=== PATIENT | female | born 1985 | race Caucasian/White ===

== ENCOUNTER → 2018-08-01 | Outpatient (CLI) | payer OTHER, SELFPAY ==
[~2018-08-01] MED LIST: HYDACE5 PO; NAPR550 PO; [UNRECOGNIZED DRUG - REMARK]
[2018-08-03 06:07] LABS: HIV SCREEN 4TH GENERATION WRFX Non Reactive (Non Reactive)
== END | disposition home or self-care (01) ==
LOC: LAB SHORT 17:32 → LAB EV 17:32
PROVIDERS: Physician Assistant Surgical
DX: Z20.9 Contact with and (suspected) exposure to unspecified communicable disease (principal)
CPT/HCPCS: 86803; 87389

== ENCOUNTER → 2018-12-04 | Outpatient (CLI) | payer OTHER ==
[2018-12-06 04:06] LABS: HCV ANTIBODY <0.1 (0.0-0.9)
[2018-12-06 08:06] LABS: HIV SCREEN 4TH GENERATION WRFX Non Reactive (Non Reactive)
== END | disposition home or self-care (01) ==
LOC: LAB SHORT 15:37 → LAB EV 15:37
PROVIDERS: Physician Assistant Surgical
DX: Z20.9 Contact with and (suspected) exposure to unspecified communicable disease (principal)
CPT/HCPCS: 84460; 86317; 86803; 87389

== ENCOUNTER 2019-05-24 12:08 | Inpatient (IN) | payer OTHER ==
[~2019-05-24] VITALS: Ht 162.6 cm; Wt 63.0 kg
[~2019-05-24 12:08] MED LIST changes: +ALLEGRA ALLERG180 MG PO; +ASCO500 PO; +ASPIR 8181 M1 PO; +CYCL10 PO; +FAMO20 PO
[2019-05-24 13:18] LABS: BASOPHILS ABSOLUTE AUTO 0.03 K/mm3 (0.00-0.23); BASOPHILS PERCENT AUTO 0 % (0-2); EOSINOPHILS ABSOLUTE AUTO 0.06 K/mm3 (0.00-0.68); EOSINOPHILS PERCENT AUTO 1 % (0-6); Hematocrit 41.7 % (33.0-51.0); IMMATURE GRAN ABSOLUTE AUTO 0.04 K/mm3 (0.00-0.10); IMMATURE GRAN PERCENT AUTO 0 % (0-1); LYMPHOCYTES ABSOLUTE AUTO 1.94 K/mm3 (0.84-5.20); LYMPHOCYTES PERCENT AUTO 17 % (21-46); MONOCYTES ABSOLUTE AUTO 1.08 K/mm3 (0.16-1.47); MONOCYTES PERCENT AUTO 10 % (4-13); Mean Corpuscular HGB 33.5 pg (26.0-34.0); Mean Corpuscular HGB Conc 33.6 g/dL (31.5-36.5); Mean Corpuscular Volume 100 fL (80-100); Mean Platelet Volume 11.5 fL (9.1-12.4); NEUTROPHILS ABSOLUTE AUTO 8.26 K/mm3 (1.96-9.15); NEUTROPHILS PERCENT AUTO 72 % (41-73); Platelet Count 163 K/mm3 (150-400); RDW Coefficient Variation 12.9 % (11.7-14.2); RDW Standard Deviation 47.8 fL (35.1-46.3); Red Blood Cell Count 4.18 M/mm3 (3.80-5.20); White Blood Cell Count 11.41 K/mm3 (4.00-11.30)
--- NOTE | 2019-05-25 10:47 | NUR ---
05/25/19 1047 Sang Champagne CORD BLOOD SENT WITH BRENDON RN. TIME OF 0956. VIABLE BABY GIRL.
[2019-05-26 05:20] LABS: Hematocrit 40.1 % (33.0-51.0); Hemoglobin 13.3 g/dL (11.5-16.0); Mean Corpuscular HGB 32.8 pg (26.0-34.0); Mean Corpuscular HGB Conc 33.2 g/dL (31.5-36.5); Mean Corpuscular Volume 99 fL (80-100); Platelet Count 128 K/mm3 (150-400); RDW Standard Deviation 47.5 fL (35.1-46.3); Red Blood Cell Count 4.05 M/mm3 (3.80-5.20); White Blood Cell Count 10.99 K/mm3 (4.00-11.30)
--- NOTE | 2019-05-26 06:23 | NUR ---
IV IN RIGHT HAND UNABLE TO FLUSH. IV D/C, WNL.
--- NOTE | 2019-05-26 13:27 | NUR ---
ENCOURAGED PT TO AMBULATE IN HALLS 20-30 MIN AFTER TAKING PAIN MEDICATION, PT UNSURE IF SHE CAN STATES IS TO PAINFUL, DISCUSSED THE NEED FOR AMBULATING TO HELP PASSING FLATUS
--- NOTE | 2019-05-26 13:49 | NUR ---
PT LYING IN BED STATES PAIN IS BETTER BUT JUST RETURNED FROM AMBULATING TO BATHROOM AND THAT WAS PAINFUL, RESTING IN BED STATES PAIN IS 2/10 AND TOLEERABLE BUT WHEN AMBULATING ITS MUCH WORST 7-8/10. INSTURCTED TO CALL IF SHE FELT SHE NEEDED MORE PAIN MEDICATION,
--- NOTE | 2019-05-26 14:38 | NUR ---
PT VERY UNCOMFORTABLE AFTER WALKING TO DOORWAY, ENCOURAGED PT TO SITTING IN CHAIR INSTEAD OF GOING BACK TO BED, NOT PASSING FLATUS, MEDICATED W/ 1 PERCOCET AT THIS TIME, PT IN ROOM INCOURAGING PT TO WALK
--- NOTE | 2019-05-26 15:13 | NUR ---
PT UP AMBULATING TO BATHROOM STATES PAIN IN BETTER NOW / WHEN WALKING
--- NOTE | 2019-05-26 15:50 | NUR ---
PT UP AMBULATING IN HALLS PUSHING NB IN CRIB
--- NOTE | 2019-05-26 16:24 | NUR ---
PT VOIDING WELL MEASURING 100-200CC IN URINE HAT, HAS HAD SEVERAL VOIDS SINCE MCLAIN D/CD THIS AM
--- NOTE | 2019-05-26 16:53 | NUR ---
REPT OFF TO A DAR RN, STABLE PT VOIDING W/O DIFFICULTY, BREAST FEEDING NB WELL, HAVING BETTER PAIN CONTROL NOW WITH PO MEDS.
[2019-05-27] MEDS ORDERED: IBUP800 PO (10:11)
[2019-05-27] MEDS ORDERED: Percocet 5-3251 EACH PO (10:12)
--- NOTE | 2019-05-27 11:39 | NUR ---
DISCHARGE DC HOME STABLE. NO QUESTIONS OR CONCERNS. VERBALIZES UNDERSTANDING OF DC INSTRUCTIONS AND FOLLOW UP APPOINTMENTS. CARING FOR SELF AND BABY INDEPENDANTLY.
== END 2019-05-27 11:54 | disposition home or self-care (01) | DRG 788 ==
LOC: BC 05-25 07:14
PROVIDERS: ADMIT Obstetrics & Gynecology
PROC: 10D00Z1 Extraction of Products of Conception, Low, Open Approach (ICD-10-PCS; principal; 2019-05-25 09:45)
DX: O32.1XX0 Maternal care for breech presentation, not applicable or unspecified (principal); O34.211 Maternal care for low transverse scar from previous cesarean delivery; Z3A.40 40 weeks gestation of pregnancy; Z37.0 Single live birth
CPT/HCPCS: 36415; 85025; 85027; 86850; 86900; 86901; J0690; J1885; J2370; J2405; J2590; J2765; J3010; J7120